=== PATIENT | male | born 1985 | race Caucasian/White ===

== ENCOUNTER 2025-04-25 03:14 | Emergency (ER) | payer MEDICARE, BC ==
[~2025-04-25] VITALS: Ht 175.3 cm; Wt 68.0 kg
[2025-04-25 03:26] VITALS: O2SAT 99
[2025-04-25 05:40] VITALS: BP 142/88; PULSE 104; RESP 18; TEMP 36.8; O2SAT 99
== END 2025-04-25 05:40 | disposition home or self-care (01) ==
LOC: ER 03:14
DX: T83.091A Other mechanical complication of indwelling urethral catheter, initial encounter (principal); X58.XXXA Exposure to other specified factors, initial encounter
CPT/HCPCS: 51702; 99284